=== PATIENT | male | born 1980 | race Caucasian/White ===

== ENCOUNTER 2017-09-08 09:58 | Emergency (ER) | payer OTHER, SELFPAY ==
--- NOTE | 2017-09-08 10:13 | DI.RAD.S_ITS ---
PROCEDURE: XR WRIST LT MIN 3V INDICATIONS: 36 year-old male with left wrist pain after lifting injury. TECHNIQUE: 3 views of the wrist were acquired. COMPARISON: None available. FINDINGS: Bones: No acute fractures or dislocations. Patient is status post segmental resection of the distal ulnar shaft, along with distal radioulnar joint and carpal fixation and fusion. Surgical hardware appears intact, with surrounding lucencies around the radial ulnar joint cannulated screws consistent with hardware loosening. There is regional osteopenia. No suspicious bony lesions. Scaphoid view: Unable to be performed. Soft tissues: No suspicious soft tissue calcifications. IMPRESSION: 1. No acute bony injuries of the left wrist. 2. Status post segmental distal ulnar shaft resection with carpal and radioulnar joint fixation and fusion. The radioulnar joint hardware demonstrates evidence for loosening. Dictated by: Toni Ramirez M.D. on 09/08/2017 at 10:43 Approved by: Toni Ramirez M.D. on 09/08/2017 at 10:45
[2017-09-08 10:14] VITALS: BP 142/82; PULSE 72; RESP 13; TEMP 36.8; O2SAT 98
--- NOTE | 2017-09-08 10:59 | ED_ITS ---
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 Patient noted pain and wish to have evaluation as well as provision of a work no. ROS with no recent constitutional symptoms. Exam Gen: Pleasant, nontoxic-appearing, resting comfortably. HEENT: NC, AT, PEERL, EOMI. Resp: Unlabored respirations with a normal work of breathing. Card: Extremities warm and well perfused. GI: Non-distended. : Deferred MSK: RightLeft Upper Extremity: Visually normal with the exception of a posterior longitudinal scar over the left wrist, full functional range of motion of the shoulder, elbow, and fingers. Globally reduced [place] him of left wrist. No abnormal warmth, tenderness, or other palpable abnormalities of the joints or upper arm or forearm; muscle compartments soft.2+ radial pulse, all fingers warm and well perfused.Sensation intact to touch on all fingers. Neuro: AO x 3, no facial asymmetry, vision and hearing WNL. Heme/Lymph: Deferred Skin: Normal color with no visible lesions (other than noted above). Psych: Mood and affect appropriate. XR left wrist: no acute bony injuries of left wrist. Status post segmental distal ulnar shaft resection with carpal and radial ulnar joint fixation effusion. The radial ulnar joint hardware demonstrates evidence for loosening. MDM Previous chart, nursing note, and vitals reviewed. 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 DDx & Evaluation: no evidence of CMS deficit, no evidence of joint infection or crystalline arthropathy, imaging without evidence of fracture. Suspect overuse with subsequent pain. Instructed to use NSAIDs. Return to care as needed. Impression: left wrist pain (please reference below for remainder of encounter information) Exam Initial Vital Signs Initial Vital Signs: Vital Signs Temperature 98.2 F 09/08/17 10:14 Pulse Rate 72 09/08/17 10:14 Respiratory Rate 13 09/08/17 10:14 Blood Pressure 142/82 H 09/08/17 10:14 Pulse Oximetry 98 09/08/17 10:14 Course Orders Ordered: ED Orders 09/08/17 10:13 XR wrist LT min 3V Stat Vital Signs - 8 hr 09/08/17 10:14 Temperature 98.2 F Pulse Rate 72 Respiratory Rate 13 Blood Pressure 142/82 H Pulse Oximetry 98
[2017-09-08 12:06] VITALS: BP 138/100; PULSE 80; RESP 16; O2SAT 100
== END 2017-09-08 12:16 | disposition home or self-care (01) ==
PROVIDERS: Emergency Provider Emergency Medicine
DX: M25.532 Pain in left wrist (principal)
CPT/HCPCS: 73110; 99282; 99283

== ENCOUNTER → 2024-02-13 10:30 | Outpatient (CLI) | payer OTHER, SELFPAY ==
--- NOTE | 2024-02-13 10:32 | DI.US.S_ITS ---
PROCEDURE: US SOFT TISSUE HEAD AND NECK INDICATIONS: LUMP BACK OF NECK TECHNIQUE: Real-time scanning was performed of the neck region of interest, with image documentation. COMPARISON: None. FINDINGS: Multiple small lymph nodes are seen at the patient indicated palpable area of concern at the right posterior superior neck. The largest measures 0.4 cm in short axis diameter. IMPRESSION: A few normal lymph nodes are seen corresponding to the palpable area of concern. Approved by: Adriano Bates M.D. on 02/13/2024 at 16:23
== END ==
PROVIDERS: PCP Nurse Practitioner Primary Care; Referring Provider Nurse Practitioner Primary Care; Visit Provider Nurse Practitioner Primary Care
DX: R22.1 Localized swelling, mass and lump, neck (principal)
CPT/HCPCS: 76536